=== PATIENT | female | born 1955 | race Caucasian/White ===

== ENCOUNTER 2018-06-27 11:28 | Emergency (ER) | payer MEDICARE ==
[2018-06-27 12:24] LABS: ABS Basophils 0 10^3/ul (0-0.2); ABS Eosinophils 0 10^3/ul (0-0.6); ABS Lymphocytes 1.2 10^3/ul (1.0-4.8); ABS Monocytes 0.4 10^3/ul (0-0.8); ABS Neutrophils 2.6 10^3/ul (1.5-7.7); ABS Nucleated RBC 0 10^3/ul; Eosinophil % 0.6 % (0-6); Hematocrit 39 % (35-47); Hemoglobin 13.5 g/dl (12.0-16.0); Lymphocyte % 27.2 % (25-47); Mean Corpuscular HGB Conc 35 g/dl (31-36); Mean Corpuscular Hemoglobin 33 pg (27-31); Mean Corpuscular Volume 93 fL (80-97); Nucleated Red Blood Cells % 0; Platelet Count 191 10^3/ul (150-450); Red Blood Count 4.12 10^6/ul (4.00-5.40); Red Cell Distribution Width 13 % (10.5-15); White Blood Count 4.2 10^3/ul (3.5-10.8)
--- NOTE | 2018-06-27 12:36 | ED ---
Abdominal Pain/Female - HPI Summary HPI Summary: This is Nigel Leon documenting for attending Farhat Kelley MD. Pt CARLI is a 62 y/o F c/o RLQ abd pain onset ~5 days ago. Pain is described as "labor pain" at its worse but described as stomach ache and rated a 3/10 right now. Denies: change in appetite, problems. Hx of diverticulitis, HLD, HTN. PMHx: thyroid. - History of Current Complaint Chief Complaint: EDAbdPain Stated Complaint: RT SIDE ABD PAIN Time Seen by Provider: 06/27/18 12:25 Hx Obtained From: Patient Onset/Duration: Sudden Onset, Still Present, Resolved - a lot since Monday Timing: Constant Severity Initially: Severe Severity Currently: Mild Pain Intensity: 3 Pain Scale Used: 0-10 Numeric Location: Discrete At: RLQ Character: Other: - Now: ache 5 days ago/onset: "labor pain" Aggravating Factor(s): Food, Movement Alleviating Factor(s): Nothing Associated Signs and Symptoms: Negative: Fever, Blood in Stool, Urinary Symptoms , Decreased Appetite Allergies/Adverse Reactions: Allergies Allergy/AdvReac Type Severity Reaction Status Date / Time gluten Allergy Constipatio Verified 06/27/18 11:45 n Home Medications: Home Medications Levothyroxine TAB* [Synthroid TAB*] 75 mcg PO DAILY 06/27/18 [History Confirmed 06/27/18] PMH/Surg Hx/FS Hx/Imm Hx GI History: Denies: Hx Diverticulosis Opthamlomology History: Denies: Hx Legally Blind Infectious Disease History: No Infectious Disease History: Denies: Traveled Outside the [place] in Last 30 Days - Family History Known Family History: Negative: Cardiac Disease, Hypertension, Diabetes - Social History Occupation: Employed Full-time Lives: With Family Review of Systems Positive: Other - Neg: change in appetite. Pos:. Negative: Fever Positive: Abdominal Pain Negative: burning, dysuria All Other Systems Reviewed And Are Negative: Yes Physical Exam - Summary Physical Exam Summary: GENERAL: Patient is a well developed and nourished F who is lying comfortable in the stretcher. Patient is not in any acute respiratory distress. HEAD AND FACE: Normocephalic EYES: PERRLA, EOMI x 2. EARS: Hearing grossly intact. MOUTH: Oropharynx within normal limits. NECK: Supple, trachea is midline, no adenopathy, no JVD, no carotid bruit. CHEST: Symmetric, no tenderness at palpation LUNGS: Clear to auscultation bilaterally. No wheezing or crackles. CVS: Regular rate and rhythm, S1 and S2 present, no murmurs or gallops appreciated. ABDOMEN: RLQ TTP radiating to umbilical region. Bowel sounds are normal. No abdominal abnormal pulsations. EXTREMITIES: Full ROM in all major joints, no edema, no cyanosis or clubbing. NEURO: Alert and oriented x 3. No acute neurological deficits. Speech is normal and follows commands. SKIN: Dry and warm Triage Information Reviewed: Yes Vital Signs On Initial Exam: Initial Vitals Temp Pulse Resp BP Pulse Ox 98.7 F 70 16 109/64 99 06/27/18 11:40 06/27/18 11:40 06/27/18 11:40 06/27/18 11:40 06/27/18 11:40 Vital Signs Reviewed: Yes Diagnostics - Vital Signs Vital Signs Temp Pulse Resp BP Pulse Ox 06/27/18 11:40 98.7 F 70 16 109/64 99 - Laboratory Lab Results: Lab Results 06/27/18 Range/Units 12:15 WBC 4.2 (3.5-10.8) 10^3/ul RBC 4.12 (4.00-5.40) 10^6/ul Hgb 13.5 (12.0-16.0) g/dl Hct 39 (35-47) % MCV 93 (80-97) fL MCH 33 H (27-31) pg MCHC 35 (31-36) g/dl RDW 13 (10.5-15) % Plt Count 191 (150-450) 10^3/ul MPV 8.0 (7.4-10.4) um3 Neut % (Auto) 62.1 (38-83) % Lymph % (Auto) 27.2 (25-47) % [place] % (Auto) 9.4 H (0-7) % Eos % (Auto) 0.6 (0-6) % Baso % (Auto) 0.7 (0-2) % Absolute Neuts (auto) 2.6 (1.5-7.7) 10^3/ul Absolute Lymphs (auto) 1.2 (1.0-4.8) 10^3/ul Absolute Monos (auto) 0.4 (0-0.8) 10^3/ul Absolute Eos (auto) 0 (0-0.6) 10^3/ul Absolute Basos (auto) 0 (0-0.2) 10^3/ul Absolute Nucleated RBC 0 10^3/ul Nucleated RBC % 0 Result Diagrams: 06/27/18 12:15 06/27/18 12:15 Lab Statement: Any lab studies that have been ordered have been reviewed, and results considered in the medical decision making process. - CT A/P CT Interpretation: Positive (See Comments) - IMPRESSION: THERE ARE SEVERAL LOW- ATTENUATION HEPATIC PARENCHYMAL LESIONS THAT ARE TOO SMALL TO DEFINITIVELY CHARACTERIZE, BUT LIKELY REPRESENT SMALL CYSTS VERSUS HEMANGIOMAS IN THE ABSENCE OF A HISTORY OF MALIGNANCY. CT Interpretation Completed By: Radiologist - Provider has reviewed report. Abdominal Pain Fem Course/Dx - Course Course Of Treatment: Pt CARLI is a 62 y/o F c/o RLQ abd pain onset ~5 days ago. Workup is remarkable for UTI, hepatic cyst. The patient will be discharged. I discussed results with patient and she agrees with this plan. She is hemodynamically stable upon discharge. Strict return precautions given and she will otherwise follow up with her PCP. - Diagnoses Provider Diagnoses: UTI (urinary tract infection), Liver cyst Discharge - Sign-Out/Discharge Documenting (check all that apply): Patient Departure - Discharge Plan Condition: Stable Disposition: HOME Prescriptions: Sulfamethox/Trimethoprim DS* [Bactrim DS 800/160 TAB*] 1 tab PO BID #10 tab Patient Education Materials: Urinary Tract Infection in Women (ED) Referrals: Vandana Mai MD [Primary Care Provider] - 3 Days Additional Instructions: Follow up with your primary care physician in 1-3 days. RETURN TO THE EMERGENCY DEPARTMENT FOR CHANGING OR WORSENING SYMPTOMS. - Billing Disposition and Condition Condition: STABLE Disposition: Home
[2018-06-27 12:37] LABS: INR 0.94 (0.77-1.02)
[2018-06-27 12:57] LABS: EGFR Non-African American 86.8 (>60)
[2018-06-27] MEDS ORDERED: NS 0.9% 1000 ML* 1,000 ML IV ONE (13:09)
[2018-06-27] MEDS ORDERED: Ketorolac INJ* 15 MG/ML 1 ML VIAL IV PUSH ONE (13:10)
[2018-06-27] MEDS ORDERED: Ondansetron INJ* 2 MG/ML VIAL IV ONE (13:10)
[2018-06-27 13:15] LABS: Urine Appearance Clear; Urine Blood 1+ (Negative); Urine Color Straw; Urine Ketones Trace (Negative); Urine Protein Negative (Negative); Urine Red Blood Cell Trace(0-2/hpf) (Absent); Urine Specific Gravity 1.004 (1.010-1.030); Urine Urobilinogen Negative (Negative); Urine White Blood Cell 2+(11-20/hpf) (Absent)
[2018-06-27] MEDS ORDERED: Iohexol 300* (CONTRAST) 10 ML SDV IV ONE (13:27)
--- NOTE | 2018-06-27 13:48 | RAD ---
CLINICAL HISTORY: RLQ pain COMPARISON: None TECHNIQUE: Multiple contiguous axial CT scans were obtained of the abdomen and pelvis after the administration of intravenous contrast. Coronal and sagittal multiplanar reformations are submitted for review. Oral contrast was not administered. Delayed images were obtained through the abdomen. FINDINGS: LUNG BASES: The lung bases are clear. LIVER: There are multiple low-attenuation hepatic parenchymal lesions. These are too small to definitively characterize. BILE DUCTS: There is no intrahepatic or extrahepatic biliary dilatation. GALLBLADDER: The gallbladder is normal, without pericholecystic inflammatory change. PANCREAS: The pancreas is normal, without mass or ductal dilatation. SPLEEN: Normal in size and appearance. UPPER GI TRACT: Evaluation of the gastrointestinal tract is limited by incomplete gastric distention. The upper GI tract is unremarkable. SMALL BOWEL AND MESENTERY: The small bowel is normal in contour, course, and caliber. There is no obstruction or dilatation. COLON: The colon is normal in contour, course, caliber. There is no pericolonic inflammatory change. There is a tubular, vermiform, hollow viscus that is blind ending, and originates from the cecum, consistent with a normal appendix. There is no periappendiceal inflammatory change. This is best seen on coronal images 25 through 35 and axial images 51 through 53. ADRENALS: Normal bilaterally. KIDNEYS: The kidneys are normal in shape, size, contour, and axis. There is no hydronephrosis or nephrolithiasis. BLADDER: The bladder is smooth in contour. PELVIC ORGANS: The uterus and adnexa are grossly normal for technique. AORTA: The aorta is normal. IVC: Unremarkable LYMPH NODES: There is no lymphadenopathy by size criteria. ABDOMINAL WALL: There is no evidence for abdominal wall hernia. BONES AND SOFT TISSUES: There is diffuse osteopenia. Mild degenerative changes are noted. OTHER: None IMPRESSION: 1. THERE ARE SEVERAL LOW-ATTENUATION HEPATIC PARENCHYMAL LESIONS THAT ARE TOO SMALL TO DEFINITIVELY CHARACTERIZE, BUT LIKELY REPRESENT SMALL CYSTS VERSUS HEMANGIOMAS IN THE ABSENCE OF A HISTORY OF MALIGNANCY. 2. OTHERWISE, UNREMARKABLE CT OF THE ABDOMEN AND PELVIS.
[2018-06-27] MEDS ORDERED: Sulfamethox/Trimethoprim DS 800/160* TAB PO ONE (14:24)
[2018-06-27 15:13] VITALS: BP 132/67
== END 2018-06-27 15:12 | disposition home or self-care (01) ==
LOC: ED 11:28
DX: N39.0 Urinary tract infection, site not specified (principal); K76.89 Other specified diseases of liver; E78.5 Hyperlipidemia, unspecified; I10 Essential (primary) hypertension; E07.9 Disorder of thyroid, unspecified; Z87.19 Personal history of other diseases of the digestive system
CPT/HCPCS: 36415; 74177; 80053; 81003; 81015; 83605; 83690; 85025; 85610; 86140; 87077; 87086; 87186; 96360; 99283; A9270-GY; Q9967